=== PATIENT | female | born 1960 | race African-American/Black ===

== ENCOUNTER → 2023-06-26 | Outpatient (CLI) | payer BC ==
[~2023-06-26] VITALS: Ht 165.1 cm; Wt 106.0 kg
[~2023-06-26] MED LIST: ACET-3385 PO; AMLO-258 PO; ASPI-1450 PO; ASPI81 PO; ATOR40TA71 PO; CARV25 PO; EMPA10TA3 PO; FURO20 PO; GABA-1216 PO; LISI-893 PO; PIOG15TA6 PO; TICA90TA PO
[2023-06-26 11:20] VITALS: BP 158/73; PULSE 56; RESP 19; TEMP 98.2; O2SAT 100
== END | disposition home or self-care (01) ==
LOC: SRCNTR 10:41
PROVIDERS: ATTEND Internal Medicine
DX: I13.0 Hypertensive heart and chronic kidney disease with heart failure and stage 1 through stage 4 chronic kidney disease, or unspecified chronic kidney disease (principal); E11.22 Type 2 diabetes mellitus with diabetic chronic kidney disease; I50.9 Heart failure, unspecified; N18.9 Chronic kidney disease, unspecified; E78.5 Hyperlipidemia, unspecified; I25.10 Atherosclerotic heart disease of native coronary artery without angina pectoris; E55.9 Vitamin D deficiency, unspecified; Z95.5 Presence of coronary angioplasty implant and graft; Z79.82 Long term (current) use of aspirin; Z79.899 Other long term (current) drug therapy; Z79.4 Long term (current) use of insulin